=== PATIENT | male | born 1995 | race Caucasian/White ===

== ENCOUNTER 2017-09-14 09:48 | Emergency (ER) | payer BC ==
[~2017-09-14] VITALS: Ht 175.3 cm; Wt 77.8 kg
[2017-09-14] MEDS ORDERED: ZYRTEC10 M2 PO (10:00)
[2017-09-14 10:28] LABS: BASOPHIL (%) 0.8 % (0-1); EOSINOPHIL (%) 0 % (0-5); HEMATOCRIT 42.1 % (38.0-50.0); HEMOGLOBIN 14.9 G/DL (12.5-16.6); IMMATURE GRANULOCYTE (%) 0.3 % (0.0-0.7); LYMPHOCYTE (%) 23.8 % (15-42); LYMPHOCYTE COUNT 0.9 K/uL (1.0-2.8); MCH 31.3 PG (29.0-34.0); MCHC 35.4 G/DL (30.0-36.0); MCV 88.4 FL (86-99); MONOCYTE COUNT 0.4 K/uL (0-0.8); NEUTROPHIL (%) 66.1 % (45-76); NEUTROPHIL COUNT 2.6 K/uL (1.8-6.4); PLATELET COUNT 149 K/uL (156-360); RBC DIS.WIDTH-CV 11.9 % (11.8-14.6); RBC DIS.WIDTH-SD 38.1 % (39-53); RED BLOOD COUNT 4.76 M/uL (4.00-5.50); WHITE BLOOD COUNT 3.9 K/uL (4.1-10.2)
[2017-09-14 10:34] LABS: INTER. NORMALIZED RATIO 1.1
[2017-09-14 10:36] LABS: D-DIMER ELISA < 150.00 ng/mLDDU (<230)
[2017-09-14 10:37] LABS: CHLORIDE 104 mEq/L (99-109); POTASSIUM 3.7 mEq/L (3.7-5.4); PTT 27.2 SEC (25-37); SODIUM 142 mEq/L (136-147)
[2017-09-14 10:38] LABS: GLUCOSE 116 mg/dL (70-99)
[2017-09-14 10:42] LABS: CREATININE 1.1 mg/dL (0.6-1.3); GFR ESTIMATE (CALCULATED) > 59 mL/min/ (58.99-99999)
[2017-09-14 10:43] LABS: UREA NITROGEN (BUN) 9 mg/dL (9-23)
[2017-09-14 10:51] LABS: TROP-I INTERPRETATION NEGATIVE; TROPONIN-I < 0.01 ng/mL (0.0-0.30)
[2017-09-14 12:24] LABS: THYROTROPIN (TSH) 0.92 MIU/L (0.4-5.5)
[2017-09-14] MEDS ORDERED: PROVENTIL HFA6.7 GM IH (12:54)
[2017-09-14 13:00] VITALS: BP 132/74
== END 2017-09-14 13:02 | disposition home or self-care (01) ==
LOC: EME 09:48
PROVIDERS: Emergency Medicine
DX: F41.9 Anxiety disorder, unspecified (principal); R06.00 Dyspnea, unspecified; R07.89 Other chest pain
CPT/HCPCS: 71045; 71275; 80048; 83880; 84443; 84484; 85025; 85379; 85610; 85730; 93005; 94640; 99281; 99285; J7030